=== PATIENT | female | born 1990 | race Caucasian/White ===

== ENCOUNTER 2016-10-06 11:01 | Outpatient (CLI) | payer MEDICAID ==
[2016-10-06 11:41] LABS: APPEARANCE,URINE SLIGHTLY-CLOUDY; BILIRUBIN,URINE NEGATIVE (NEGATIVE); GLUCOSE, URINE NEGATIVE (NEGATIVE); KETONES,URINE 20 mg/dL (NEGATIVE); LEUKOCYTE ESTERASE,URINE NEGATIVE (NEGATIVE); NITRITE,URINE NEGATIVE (NEGATIVE); PROTEIN,URINE NEGATIVE (NEGATIVE); URINE SPECIFIC GRAVITY 1.005; UROBILINOGEN,URINE NEGATIVE mg/dL (<2.0)
[2016-10-06 12:03] LABS: URINE BARBITURATES SCREEN NEGATIVE; URINE METHADONE SCREEN NEGATIVE; URINE OPIATES LOW NEGATIVE; URINE PHENCYCLIDINE SCREEN NEGATIVE
[2016-10-06 12:09] LABS: ABSOLUTE EOSINOPHILS # (AUTO) 0.1 10^3/uL (0.0-0.6); ABSOLUTE LYMPHOCYTES (AUTO) 1.2 10^3/uL (0.5-4.7); ABSOLUTE MONOCYTES (AUTO) 0.5 10^3/uL (0.1-1.4); ABSOLUTE NEUT (AUTO) 6.4 10^3/uL (1.7-8.2); BASOPHILS % (AUTO) 0.6 % (0-2); EOSINOPHILS % (AUTO) 0.6 % (0-6); HEMATOCRIT 33.1 % (36.0-47.0); HEMOGLOBIN 11.5 g/dL (12.0-15.5); HGB HCT DIFFERENCE 1.4; LYMPHOCYTES % (AUTO) 15.2 % (13-45); MEAN CORPUSCULAR HEMOGLOBIN 29.3 pg (27.0-33.4); MEAN CORPUSCULAR HGB CONC 34.9 g/dL (32.0-36.0); MEAN CORPUSCULAR VOLUME 84 fl (80-97); RED BLOOD COUNT 3.94 10^6/uL (3.72-5.28); RED CELL DISTRIBUTION WIDTH 13.4 % (11.5-14.0); SEGMENTED NEUTROPHILS % (AUTO) 77.6 % (42-78); WHITE BLOOD COUNT 8.2 10^3/uL (4.0-10.5)
[2016-10-06 12:12] LABS: URINE CREATININE 66.2 mg/dL (16-327); URINE PROTEIN 12.5 mg/dL (<12)
[2016-10-06 12:30] LABS: ALANINE AMINOTRANSFERASE 26 U/L (9-52); ALBUMIN 2.8 g/dL (3.5-5.0); ALKALINE PHOSPHATASE 234 U/L (38-126); ANION GAP 10 (5-19); ASPARTATE AMINO TRANSFERASE 20 U/L (14-36); BILIRUBIN,DIRECT 0.2 mg/dL (0.0-0.4); BILIRUBIN,TOTAL 0.4 mg/dL (0.2-1.3); BLOOD UREA NITROGEN 3 mg/dL (7-20); CALCIUM 8.8 mg/dL (8.4-10.2); CARBON DIOXIDE 21 mmol/L (22-30); CHLORIDE 106 mmol/L (98-107); CREATININE RESULT 0.54 mg/dL (0.52-1.25); GLUCOSE 70 mg/dL (75-110); LDH 458 U/L (313-618); SODIUM 136.5 mmol/L (137-145); TOTAL PROTEIN 5.3 g/dL (6.3-8.2); URIC ACID 5.4 mg/dL (2.5-6.2)
== END 2016-10-06 13:02 | disposition home or self-care (01) ==
LOC: LC 11:01
PROVIDERS: ATTEND Specialist
PROC: 4A1HXCZ Monitoring of Products of Conception, Cardiac Rate, External Approach (ICD-10-PCS; principal; 2016-10-06)
DX: O16.3 Unspecified maternal hypertension, third trimester (principal); O30.043 Twin pregnancy, dichorionic/diamniotic, third trimester; Z3A.31 31 weeks gestation of pregnancy
CPT/HCPCS: 36415; 59025; 80053; 80307; 81001; 82570; 83615; 84156; 84550; 85025

== ENCOUNTER 2016-10-14 09:39 | Observation (INO) | payer MEDICAID ==
[2016-10-14 11:02] LABS: APPEARANCE,URINE CLEAR; BILIRUBIN,URINE NEGATIVE (NEGATIVE); GLUCOSE, URINE NEGATIVE (NEGATIVE); KETONES,URINE NEGATIVE (NEGATIVE); LEUKOCYTE ESTERASE,URINE NEGATIVE (NEGATIVE); NITRITE,URINE NEGATIVE (NEGATIVE); PROTEIN,URINE NEGATIVE (NEGATIVE); URINE SPECIFIC GRAVITY 1.005; UROBILINOGEN,URINE NEGATIVE mg/dL (<2.0)
[2016-10-14 11:23] LABS: URINE BARBITURATES SCREEN NEGATIVE; URINE METHADONE SCREEN NEGATIVE; URINE OPIATES LOW NEGATIVE; URINE PHENCYCLIDINE SCREEN NEGATIVE
[2016-10-14 11:28] LABS: URINE CREATININE 60.6 mg/dL (16-327); URINE PROTEIN 11.7 mg/dL (<12)
[2016-10-14 11:35] LABS: ABSOLUTE EOSINOPHILS # (AUTO) 0.1 10^3/uL (0.0-0.6); ABSOLUTE LYMPHOCYTES (AUTO) 1.4 10^3/uL (0.5-4.7); ABSOLUTE MONOCYTES (AUTO) 0.5 10^3/uL (0.1-1.4); ABSOLUTE NEUT (AUTO) 6.4 10^3/uL (1.7-8.2); BASOPHILS % (AUTO) 0.3 % (0-2); EOSINOPHILS % (AUTO) 0.6 % (0-6); HEMATOCRIT 32.9 % (36.0-47.0); HEMOGLOBIN 10.8 g/dL (12.0-15.5); HGB HCT DIFFERENCE -0.5; LYMPHOCYTES % (AUTO) 16.9 % (13-45); MEAN CORPUSCULAR HEMOGLOBIN 28.2 pg (27.0-33.4); MEAN CORPUSCULAR HGB CONC 32.8 g/dL (32.0-36.0); MEAN CORPUSCULAR VOLUME 86 fl (80-97); MONOCYTES % (AUTO) 6.1 % (3-13); RED BLOOD COUNT 3.82 10^6/uL (3.72-5.28); RED CELL DISTRIBUTION WIDTH 13.1 % (11.5-14.0); SEGMENTED NEUTROPHILS % (AUTO) 76.1 % (42-78); WHITE BLOOD COUNT 8.4 10^3/uL (4.0-10.5)
[2016-10-14 11:36] LABS: ALANINE AMINOTRANSFERASE 28 U/L (9-52); ALBUMIN 2.6 g/dL (3.5-5.0); ALKALINE PHOSPHATASE 236 U/L (38-126); ANION GAP 7 (5-19); ASPARTATE AMINO TRANSFERASE 21 U/L (14-36); BILIRUBIN,DIRECT 0.3 mg/dL (0.0-0.4); BILIRUBIN,TOTAL 0.5 mg/dL (0.2-1.3); BLOOD UREA NITROGEN 3 mg/dL (7-20); CALCIUM 8.7 mg/dL (8.4-10.2); CARBON DIOXIDE 23 mmol/L (22-30); CHLORIDE 106 mmol/L (98-107); CREATININE RESULT 0.59 mg/dL (0.52-1.25); GLUCOSE 77 mg/dL (75-110); LDH 503 U/L (313-618); POTASSIUM 4.2 mmol/L (3.6-5.0); SODIUM 136.2 mmol/L (137-145); TOTAL PROTEIN 4.9 g/dL (6.3-8.2); URIC ACID 5.9 mg/dL (2.5-6.2)
[2016-10-15 09:20] LABS: ABSOLUTE EOSINOPHILS # (AUTO) 0.1 10^3/uL (0.0-0.6); ABSOLUTE LYMPHOCYTES (AUTO) 1.2 10^3/uL (0.5-4.7); ABSOLUTE MONOCYTES (AUTO) 0.3 10^3/uL (0.1-1.4); ABSOLUTE NEUT (AUTO) 5.1 10^3/uL (1.7-8.2); BASOPHILS % (AUTO) 0.3 % (0-2); EOSINOPHILS % (AUTO) 1.1 % (0-6); HEMATOCRIT 33.4 % (36.0-47.0); HEMOGLOBIN 11.1 g/dL (12.0-15.5); HGB HCT DIFFERENCE -0.1; LYMPHOCYTES % (AUTO) 18.4 % (13-45); MEAN CORPUSCULAR HEMOGLOBIN 28.4 pg (27.0-33.4); MEAN CORPUSCULAR HGB CONC 33.2 g/dL (32.0-36.0); MEAN CORPUSCULAR VOLUME 86 fl (80-97); MONOCYTES % (AUTO) 4.7 % (3-13); RED CELL DISTRIBUTION WIDTH 13.5 % (11.5-14.0); SEGMENTED NEUTROPHILS % (AUTO) 75.5 % (42-78); WHITE BLOOD COUNT 6.8 10^3/uL (4.0-10.5)
[2016-10-15 09:34] LABS: ALANINE AMINOTRANSFERASE 29 U/L (9-52); ALBUMIN 2.6 g/dL (3.5-5.0); ALKALINE PHOSPHATASE 236 U/L (38-126); ANION GAP 10 (5-19); ASPARTATE AMINO TRANSFERASE 23 U/L (14-36); BILIRUBIN,DIRECT 0.2 mg/dL (0.0-0.4); BILIRUBIN,TOTAL 0.3 mg/dL (0.2-1.3); BLOOD UREA NITROGEN 4 mg/dL (7-20); CALCIUM 8.7 mg/dL (8.4-10.2); CARBON DIOXIDE 21 mmol/L (22-30); CHLORIDE 106 mmol/L (98-107); CREATININE RESULT 0.58 mg/dL (0.52-1.25); GLUCOSE 124 mg/dL (75-110); SODIUM 137.1 mmol/L (137-145); TOTAL PROTEIN 5.1 g/dL (6.3-8.2); URIC ACID 5.6 mg/dL (2.5-6.2)
--- NOTE | 2016-10-15 14:28 | Admission Physical ---
Datetime Report Generated by CPN: 10/15/2016 14:28 CURRENT ADMISSION Chief Complaint: Signs/Symptoms Gestational HTN Indication for Induction: Not Applicable Admit Plan: Admit to Unit; Observation/Evaluation ALLERGIES Medication Allergies: No Medication Allergies: No Known Allergies (10/06/2016) Latex: No Latex Allergies OBSTETRICAL HISTORY EDC: 12/03/2016 00:00 : 4 Para: 2 Term: 2 : 0 SAB: 0 IAB: 1 Ectopic: 0 Livin Cesareans: 2 VBACs: 0 Multiple Births: 1 Gestational Diabetes: Yes Hx Previous C/S: Yes PIH: Unknown Obstetrical History Comments: G1- EAB 7 weeks G2- c/s G3 SEE RECORDS Alcohol: No Marijuana : No Cocaine: No Other Illicit Drugs: No Cigarettes: Former Smoker. [id number] PHYSICAL EXAM General: Normal HEENT: Normal Neurologic: Normal Thyroid: Normal Heart: Normal Lungs: Normal Breast: Deferred Back: Normal Abdomen: Normal Genitourinary Exam: Normal Extremities: Normal DTRs: Normal Pelvic Type: Adequate Vital Signs: Reviewed; Within Normal Limits FETUS A EGA: 32.6 Admit Comment: 25yo at 32+6ega with h/o C/S x2 and h/o EAB with DC/DA TIUP. c/b Obesity, d/o depression/bipolar, Smoker. She desires BTL with C/S when she needs to be delivered. She will require DVT prophy in hospital pp. BPs elevated in the office to 150-155/90's. Proir 24 hr UTP was 298. PIH labs stable but Platlets are low. Normal AST/ALT. Pt also c/o itching. Will get bile acids but wont be back for some time. SCDs in place. FHR CAT I x 2. No ctx. Will monitor on floor. NSTs daily. Repeat labs in am. FETUS B Monitoring: External US; Auscultation PLANS FOR LABOR AND DELIVERY Labor and Delivery: None Pain Management: None Other Pain Management Plans: planned repeat c/s Feeding Preference: Both Benefit of Breast Feed Discussed: Yes Circumcision: Yes INFORMED CONSENT Informed Consent Obtained: Section Delivery; Risks, Benefits and Alternatives Discussed Signature: with User ID: [email or web address]
--- NOTE | 2016-10-15 14:46 | PDOC DISCHARGE SUMMARY ---
Final Diagnosis Discharge Date: 10/15/16 - Final Diagnosis (1) Preeclampsia Is this a current diagnosis for this admission?: Yes (2) , twins Is this a current diagnosis for this admission?: Yes Discharge Data - Discharge Medication Home Medications: Ranitidine HCl [Zantac 150 mg Tablet] 150 mg PO TID 10/06/16 Vit/Iron Fumarate/FA [ Tablet] 1 each PO QHS 10/14/16 Gestational Age: 33 wks Reason(s) for Admission: Obstetric Complications - preeclampsia evaluation Admission Note: The pt was sent from [facility] for preeclampsia evaluation. She has preeclapmsia with mild features by blood pressure and 24 hour urine protein. Her platelets are slightly low at 140k. She will be sent home today with followup twice a week. - Diagnosis Test Laboratory: Temp Pulse Resp BP Pulse Ox 98.0 F 112 H 16 134/97 H 99 10/15/16 12:27 10/15/16 12:27 10/15/16 12:27 10/15/16 12:27 10/15/16 12:27 10/14/16 10/14/16 10/15/16 09:52 11:08 08:20 RBC 3.82 3.90 Hgb 10.8 L 11.1 L Hct 32.9 L 33.4 L Urine Opiates Screen NEGATIVE - Discharge information/Instructions Discharge Activity: Balance Activity w/Rest Discharge Diet: Regular Disposition: HOME, SELF-CARE Follow up with: [facility] - and [facility] in: 3, Days - as planned at [facility] and [facility]
[2016-10-15 15:20] VITALS: BP 135/85
== END 2016-10-15 15:45 | disposition home or self-care (01) ==
LOC: LR 09:39 → 2S 13:29 → OBSVTOIN 13:32 → INTOOBSV 13:32
PROVIDERS: ADMIT Student in an Organized Health Care Education/Training Program; ATTEND Student in an Organized Health Care Education/Training Program
PROC: 4A1HXCZ Monitoring of Products of Conception, Cardiac Rate, External Approach (ICD-10-PCS; principal; 2016-10-14)
DX: O14.03 Mild to moderate pre-eclampsia, third trimester (principal); O30.003 Twin pregnancy, unspecified number of placenta and unspecified number of amniotic sacs, third trimester; O26.893 Other specified pregnancy related conditions, third trimester; L29.9 Pruritus, unspecified; Z3A.33 33 weeks gestation of pregnancy; Z86.32 Personal history of gestational diabetes; Z87.891 Personal history of nicotine dependence
CPT/HCPCS: 59025 ×2; 36415 ×2; 83615; 84156; 84550 ×2; 82570; 85025 ×2; 80053 ×2; 81001; 80307; 82239; G0378 ×2; G0379

== ENCOUNTER 2016-10-18 15:20 | Inpatient (IN) | payer MEDICAID ==
--- NOTE | 2016-10-18 15:35 | Non Stress Test Report ---
Non Stress Test Datetime Report Generated by CPN: 10/18/2016 15:35 DEMOGRAPHIC EGA NST: 32.6 INDICATION Indication for Study: Ordered by Provider Indication for Study (NST) Other: 23 hour obs MONITORING Monitor Explained: Monitor Explained; Test Explained; Patient Verbalized Understanding Time on Monitor: 10/14/2016 10:00 Time off Monitor: 10/14/2016 12:27 NST Duration: 147 NST INTERVENTIONS NST Interventions: PO Hydration Physician Notified NST: DrEnio Segovia BABY A: [id number] BABY A Movement : Present Contraction Frequency : rare FHR Baseline : 140 (Annotations: Data stored by [facility] on behalf of user) Accelerations : 15X15 Decelerations : None Variability : Moderate 6-25bpm NST Review: Meets Criteria for Reactive NST NST Review and Verified By : Elle Pelayo [facility] NST Results: Reactive BABY B Movement: Present FHR Baseline: 130 Accelerations: 15X15 Decelerations: None Variability: Moderate 6-25bpm NST Review: Meets Criteria for Reactive NST NST Reviewed And Verified By: D Bellavance [facility] NST Results: Reactive NST REPORT Report Trigger: Send Report
[2016-10-18] MEDS ORDERED: RINGERS SOLUTION,LACTATED 1,000 ML IV PRN (15:58)
[2016-10-18 16:50] LABS: ABSOLUTE LYMPHOCYTES (AUTO) 1.5 10^3/uL (0.5-4.7); ABSOLUTE MONOCYTES (AUTO) 0.6 10^3/uL (0.1-1.4); ABSOLUTE NEUT (AUTO) 6.6 10^3/uL (1.7-8.2); BASOPHILS % (AUTO) 0.3 % (0-2); EOSINOPHILS % (AUTO) 0.4 % (0-6); HEMATOCRIT 34.8 % (36.0-47.0); HEMOGLOBIN 11.8 g/dL (12.0-15.5); HGB HCT DIFFERENCE 0.6; LYMPHOCYTES % (AUTO) 17.5 % (13-45); MEAN CORPUSCULAR HEMOGLOBIN 28.4 pg (27.0-33.4); MEAN CORPUSCULAR HGB CONC 33.9 g/dL (32.0-36.0); MEAN CORPUSCULAR VOLUME 84 fl (80-97); MONOCYTES % (AUTO) 6.6 % (3-13); RED BLOOD COUNT 4.16 10^6/uL (3.72-5.28); RED CELL DISTRIBUTION WIDTH 13.3 % (11.5-14.0); SEGMENTED NEUTROPHILS % (AUTO) 75.2 % (42-78); WHITE BLOOD COUNT 8.8 10^3/uL (4.0-10.5)
[2016-10-18] MEDS ORDERED: TERBUTALINE SULFATE INJ/PF 1 MG/1 ML SDV ONE (16:59)
[2016-10-18] MEDS ORDERED: BETAMET ACET/BETAMET NA INJ 6 MG/1 ML ONE (16:59)
[2016-10-18 17:08] LABS: AMORPHOUS SEDIMENT,URINE TRACE /HPF; APPEARANCE,URINE CLOUDY; BILIRUBIN,URINE NEGATIVE (NEGATIVE); CALCIUM OXALATE CRYSTALS,URINE TOO NUMEROUS TO CNT /HPF; GLUCOSE, URINE NEGATIVE (NEGATIVE); KETONES,URINE 20 mg/dL (NEGATIVE); LEUKOCYTE ESTERASE,URINE NEGATIVE (NEGATIVE); NITRITE,URINE NEGATIVE (NEGATIVE); PROTEIN,URINE 30 mg/dL (NEGATIVE); URINE SPECIFIC GRAVITY 1.019; UROBILINOGEN,URINE NEGATIVE mg/dL (<2.0)
[2016-10-18 17:19] LABS: ALANINE AMINOTRANSFERASE 32 U/L (9-52); ALKALINE PHOSPHATASE 278 U/L (38-126); ANION GAP 9 (5-19); ASPARTATE AMINO TRANSFERASE 27 U/L (14-36); BILIRUBIN,DIRECT 0.4 mg/dL (0.0-0.4); BILIRUBIN,TOTAL 0.6 mg/dL (0.2-1.3); BLOOD UREA NITROGEN 10 mg/dL (7-20); CALCIUM 9.4 mg/dL (8.4-10.2); CARBON DIOXIDE 20 mmol/L (22-30); CHLORIDE 106 mmol/L (98-107); CREATININE RESULT 0.67 mg/dL (0.52-1.25); GLUCOSE 76 mg/dL (75-110); LDH 578 U/L (313-618); POTASSIUM 4.4 mmol/L (3.6-5.0); SODIUM 134.6 mmol/L (137-145); TOTAL PROTEIN 5.9 g/dL (6.3-8.2); URIC ACID 6.5 mg/dL (2.5-6.2)
[2016-10-18 17:24] LABS: URINE BARBITURATES SCREEN NEGATIVE; URINE METHADONE SCREEN NEGATIVE; URINE OPIATES LOW NEGATIVE; URINE PHENCYCLIDINE SCREEN NEGATIVE
[2016-10-18 17:28] LABS: URINE CREATININE 207.8 mg/dL (16-327); URINE PROTEIN 8.4 mg/dL (<12)
[2016-10-18] MEDS ORDERED: NIFEDIPINE 10 MG CAPSULE ONE (18:31)
--- NOTE | 2016-11-30 10:44 | TRANSFER SUMMARY E ---
Transfer Summary NAME: LINCOLN PENA : 1990 AGE: 25Y ADMITTED: 10/18/2016 TRANSFERRED: 10/18/2016 HOSPITAL COURSE: The patient is admitted to the hospital *------* labor and delivery on October 18, 2016 at 32 weeks 6 days with labor. Patient is initially given IV fluids and terbutaline to see if those will tocolyse her. These failed. Patient is then therefore started on magnesium sulfate and given Celestone steroids. She is transferred to [facility] for her labor. She is sent in stable condition. The fetus has reassuring heart tones. DICTATING PHYSICIAN: Jg Carey DO [id number] PHY#: [id number] ID: [id number] JOB#: [id number] ACCT: [id number] cc:Jg Carey D.O. >
--- NOTE | 2016-12-01 11:08 | Admission Physical ---
Datetime Report Generated by CPN: 12/01/2016 11:07 CURRENT ADMISSION Chief Complaint: Signs/Symptoms Gestational HTN; Other Chief Complaint: Signs/Symptoms Gestational HTN Chief Complaint Other: [place]/Di Twins Indication for Induction: Not Applicable Indication for Induction: Not Applicable Admit Plan: Admit to Unit Admit Plan: Admit to Unit; Observation/Evaluation ALLERGIES Medication Allergies: No Medication Allergies: No Known Allergies (10/06/2016) Latex: No Latex Allergies Food Allergies: no Environmental Allergies: no OBSTETRICAL HISTORY EDC: 12/03/2016 00:00 : 4 Para: 2 Term: 2 : 0 SAB: 0 IAB: 1 Ectopic: 0 Livin Cesareans: 2 VBACs: 0 Multiple Births: 1 Gestational Diabetes: Yes Rh Sensitization: No Incompetent Cervix: No JAZMIN: No Infertility: No ART Treatment: No Uterine Anomaly: No IUGR: No Hx Previous C/S: Yes Macrosomia: No Hx Loss/Stillborn: No PIH: Yes Hx : No Placenta Previa/Abruption: No Depression/PP Depression: Yes PTL/PROM: No Post Hemorrhage: No Current Procedures: Ultrasound Obstetrical History Comments: G1- EAB 7 weeks G2- c/s G3 SEE RECORDS Alcohol: No Marijuana : No Cocaine: No Other Illicit Drugs: No Cigarettes: Former Smoker. 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 Heart Disease: No Hosp/Surgery: Yes Autoimmune Disorder: No Anesthetic Complications: No Kidney Disease: No Abnormal Pap Smear: No Neuro/Epilepsy: No Psychiatric Disorders: Yes Other Medical Diseases: No Hepatitis/Liver Disease: No Significant Family History: No Varicosities/Phlebitis: No Thyroid Dysfunction: No INFECTIOUS HISTORY Gonorrhea: No Genital Herpes: No Chlamydia: No Tuberculosis: No Syphilis: No Hepatitis: No HIV/AIDS Exposure: No Rash or Viral Illness: No HPV: No PHYSICAL EXAM General: Normal General: Normal HEENT: Normal HEENT: Normal Neurologic: Normal Neurologic: Normal Thyroid: Deferred Thyroid: Normal Heart: Normal Heart: Normal Lungs: Normal Lungs: Normal Breast: Deferred Breast: Deferred Back: Normal Back: Normal Abdomen: Normal Abdomen: Normal Genitourinary Exam: Normal Genitourinary Exam: Normal Extremities: Normal Extremities: Normal DTRs: Normal DTRs: Normal Pelvic Type: Adequate Pelvic Type: Adequate Physical Exam Comments: DTR's 2/4 b/l, no clonus Vital Signs: Reviewed; Within Normal Limits Vital Signs: Reviewed; Within Normal Limits VAGINAL EXAM Dilatation: 0 Effacement: 100 Station: -3 MEMBRANES Membranes: Intact FETUS A Monitoring: External US Decelerations: None FHR Category: Category I Presentation: Vertex Presentation- Other: Breech Admit Comment: Per discussion with NEHEMIAH Cotton, pt is to be admitted for remainder of for close observation of her Gest HTN and Twin Gestation. Will give Steriods, per [facility] Admit Comment: 25yo at 32+6ega with h/o C/S x2 and h/o EAB with DC/DA TIUP. c/b Obesity, d/o depression/bipolar, Smoker. She desires BTL with C/S when she needs to be delivered. She will require DVT prophy in hospital pp. BPs elevated in the office to 150-155/90's. Proir 24 hr UTP was 298. PIH labs stable but Platlets are low. Normal AST/ALT. Pt also c/o itching. Will get bile acids but wont be back for some time. SCDs in place. FHR CAT I x 2. No ctx. Will monitor on floor. NSTs daily. Repeat labs in am. FETUS B Monitoring: External US Monitoring: External US Monitoring: External US Monitoring: External US Monitoring: External US; Auscultation PLANS FOR LABOR AND DELIVERY Labor and Delivery: None Pain Management: None Other Pain Management Plans: planned repeat c/s Feeding Preference: Both Benefit of Breast Feed Discussed: Yes Circumcision: Yes INFORMED CONSENT Informed Consent Obtained: Section Delivery; Risks, Benefits and Alternatives Discussed Signature: with User ID: [email or web address] Signature: with User ID: [email or web address] : with User ID: [email or web address]
--- NOTE | 2016-12-01 11:13 | Admission Physical ---
Datetime Report Generated by CPN: 12/01/2016 11:13 CURRENT ADMISSION Chief Complaint: Signs/Symptoms Gestational HTN; Other Chief Complaint Other: [place]/Di Twins Indication for Induction: Not Applicable Admit Plan: Admit to Unit ALLERGIES Food Allergies: no Environmental Allergies: no OBSTETRICAL HISTORY Rh Sensitization: No Incompetent Cervix: No JAZMIN: No Infertility: No ART Treatment: No Uterine Anomaly: No IUGR: No Macrosomia: No Hx Loss/Stillborn: No PIH: Yes Hx : No Placenta Previa/Abruption: No Depression/PP Depression: Yes PTL/PROM: No Post Hemorrhage: No Current Procedures: Ultrasound MEDICAL HISTORY Diabetes: Yes Diabetes Type: Gestational Diabetes Blood Transfusion: No Pulmonary Disease (Asthma, TB): No Breast Disease: No Hypertension: No Top Icer Surgery: No Heart Disease: No Hosp/Surgery: Yes Autoimmune Disorder: No Anesthetic Complications: No Kidney Disease: No Abnormal Pap Smear: No Neuro/Epilepsy: No Psychiatric Disorders: Yes Other Medical Diseases: No Hepatitis/Liver Disease: No Significant Family History: No Varicosities/Phlebitis: No Thyroid Dysfunction: No INFECTIOUS HISTORY Gonorrhea: No Genital Herpes: No Chlamydia: No Tuberculosis: No Syphilis: No Hepatitis: No HIV/AIDS Exposure: No Rash or Viral Illness: No HPV: No PHYSICAL EXAM General: Normal HEENT: Normal Neurologic: Normal Thyroid: Deferred Heart: Normal Lungs: Normal Breast: Deferred Back: Normal Abdomen: Normal Genitourinary Exam: Normal Extremities: Normal DTRs: Normal Pelvic Type: Adequate Physical Exam Comments: DTR's 2/4 b/l, no clonus Vital Signs: Reviewed; Within Normal Limits VAGINAL EXAM Dilatation: 0 Effacement: 100 Station: -3 MEMBRANES Membranes: Intact FETUS A Monitoring: External US Decelerations: None FHR Category: Category I Presentation: Vertex Presentation- Other: Breech Admit Comment: Per discussion with Dr. montoya, MFM, pt is to be admitted for remainder of for close observation of her Gest HTN and Twin Gestation. Will give Steriods, per MFM FETUS B Monitoring: External US Monitoring: External US Monitoring: External US Monitoring: External US INFORMED CONSENT Signature: with User ID: [email or web address]
== END 2016-10-18 21:37 | disposition short-term general hospital (02) | DRG 778 ==
LOC: LC 15:20 → LR 15:28
PROVIDERS: ADMIT Obstetrics & Gynecology; ATTEND Obstetrics & Gynecology
PROC: 4A1HXCZ Monitoring of Products of Conception, Cardiac Rate, External Approach (ICD-10-PCS; principal; 2016-10-18)
DX: O60.03 Preterm labor without delivery, third trimester (principal); O13.3 Gestational [pregnancy-induced] hypertension without significant proteinuria, third trimester; O24.419 Gestational diabetes mellitus in pregnancy, unspecified control; O30.033 Twin pregnancy, monochorionic/diamniotic, third trimester; Z3A.32 32 weeks gestation of pregnancy
CPT/HCPCS: 36415; 59025; 80053; 80307; 81001; 82570; 83615; 84156; 84550; 85025; 86592; 86850; 86900; 86901; J0702; J3105; J3490